=== PATIENT | female | born 1975 | race Caucasian/White ===

== ENCOUNTER → 2023-10-01 12:18 | Outpatient (REF) | payer OTHER, SELFPAY | LOC: HWRAD 12:18 | PROVIDERS: ATTENDING PHYSICIAN Internal Medicine; FAMILY PHYSICIAN Internal Medicine | DX: M54.16 Radiculopathy, lumbar region (principal); M54.32 Sciatica, left side | CPT/HCPCS: 72110 ==

== ENCOUNTER → 2023-10-08 06:28 | Day surgery (SDC) | payer OTHER, SELFPAY ==
[2023-10-08 08:23] LABS: Glucose - Point of Care 110 mg/dl (70-99)
== END ==
LOC: GI 06:28
PROVIDERS: ATTENDING PHYSICIAN Internal Medicine Gastroenterology; FAMILY PHYSICIAN Internal Medicine
DX: Z12.11 Encounter for screening for malignant neoplasm of colon (principal); J02.9 Acute pharyngitis, unspecified; K44.9 Diaphragmatic hernia without obstruction or gangrene; K31.7 Polyp of stomach and duodenum; R12 Heartburn
CPT/HCPCS: 43239; G0121; 88305; 82962

== ENCOUNTER 2023-12-20 16:47 | Emergency (ER) | payer OTHER, SELFPAY ==
[2023-12-20 16:58] VITALS: BP 152/98
[2023-12-20 17:18] LABS: % Basophils 0.5 % (0-2); % Eosinophils 1.4 % (0-6); % Immature Granulocytes 0.3 % (0-0.5); % Lymphocytes 39.4 % (20.5-51.1); % Monocytes 6.1 % (1.7-9.3); % Neutrophils 52.3 % (42.2-75.2); Absolute Basophils 0.1 10^3/uL (0-0.2); Absolute Eosinophils 0.2 10^3/uL (0-0.7); Absolute Lymphocytes 4.4 10^3/uL (1.2-3.4); Absolute Monocytes 0.7 10^3/uL (0.1-0.6); Absolute Neutrophils 5.8 10^3/uL (1.4-6.5); Hematocrit 38.3 % (37.0-47.0); Hemoglobin 12.5 g/dL (12.0-16.0); Mean Corp Hgb Conc. 32.6 g/dL (33.0-37.0); Mean Corpuscular Volume 88.9 fL (81.0-99.0); Mean Platelet Volume 11.8 fL (7.4-10.4); Nucleated Red Blood Cells % 0 %; Platelet Count 234 10^3/uL (130-400); Red Blood Cell Count 4.31 10^6/uL (4.20-5.40); Red Cell Dist. Width 12.5 % (11.5-14.5); White Blood Cell Count 11.1 10^3/uL (4.8-10.8)
[2023-12-20 17:42] LABS: ALT (SGPT) 55 U/L (0-35); AST (SGOT) 34 U/L (14-36); Albumin 4.3 g/dl (3.5-5.0); Alkaline Phosphatase 63 U/L (38-126); Blood Urea Nitrogen 15 mg/dl (7-17); Calcium 10.2 mg/dl (8.4-10.2); Carbon Dioxide 22 mmol/L (22-30); Chloride 105 mmol/L (98-107); Glucose 103 mg/dl (70-99); Sodium 139 mmol/L (135-145); Total Bilirubin 0.4 mg/dl (0.2-1.3); Total Protein 7.1 g/dl (6.3-8.2); eGFR > 60.00
[2023-12-20 19:15] VITALS: BP 135/97
[2023-12-20 19:38] VITALS: BMI 45.8
[2023-12-20 19:52] VITALS: BP 130/81
[2023-12-20] MEDS: BENADRYL 25 MG IV (19:52)
[2023-12-20] MEDS: COMPAZINE 10 MG IV (19:52)
[2023-12-20 20:06] LABS: HCG, Serum Qualitative Screen Negative
[2023-12-20 21:15] VITALS: BP 127/76
[2023-12-20 22:00] VITALS: BP 130/78
--- NOTE | 2023-12-20 22:26 | ED.GENMED ---
History of Present Illness
General
Chief Complaint: Headache
Source: patient and family
Time Seen by Provider: 12/20/23 18:52
Travel History
Have you had any contact with someone who has COVID-19?: No
Do you have any symptoms of coronavirus? Fever > 100 degrees, chills, cough, shortness of breath, sore throat, loss of taste or smell, muscle aches, or headache?: No
History of Present Illness
History of Present Illness:
48-year-old female who presents with complaints of frontal headache. Patient reports that started yesterday and has been constant for 2 days. Patient reports trying Advil without relief. She states that it started yesterday and has gradually
worsened. The patient does admit that she had difficulty with her son yesterday and there is a lot of emotional strife. Patient was seen by her primary care doctor noted to be little hypertensive. Patient my evaluation reports mild photophobia
and frontal throbbing headache. Does have a history of headaches but states that she has never had 1 that persisted like this before. No neck pain. No fever. No rash. No trauma. No vision changes. No motor weakness. No numbness. No tingling
Past History
Past History
ED Past Medical History: GERD, NIDDM and Other (Headaches)
ED Past Surgical History: and Other (Hernia, oral surgery)
Social History
Tobacco: Non-smoker
Phy Exam
Physical Exam
Physical Exam:
CONSTITUTIONAL Patient alert and oriented to person, place and time. Well-appearing. Vital signs reviewed.
HEAD atraumatic, normocephalic.
EYES eyelids normal to inspection, Pupils equally round and reactive to light, Extraocular muscles intact, Conjunctiva normal, Sclera normal.
NECK normal range of motion, Trachea midline, no jugular venous distention.
RESPIRATORY CHEST No respiratory distress noted, Chest expansion equal
ABDOMEN abdomen nontender, Bowel sounds normal. No distention.
BACK normal inspection, no obvious deformities
UPPER EXTREMITY range of motion normal, Motor strength normal, no cyanosis, no edema.
LOWER EXTREMITY range of motion normal, Motor strength normal, no cyanosis, no edema.
NEURO Speech normal, No focal motor deficits, Jerald coma scale 15, Memory normal, Cranial Nerves intact to screening exam. No pronator drift.
SKIN skin warm, dry, and normal in color.
PSYCHIATRIC patient oriented to person place and time, Normal affect.
Course
Orders/Labs/Results
Orders:
Orders
12/20/23 17:09
CMP [Comprehensive Metabolic Panel] Urgent
Complete Blood Count/With Diff Urgent
12/20/23 19:34
Test Result ONCE
12/20/23 19:38
CT Head W/o Iv Contrast Urgent
Comment:
Reason For Exam: headache
Diphenhydramine [Benadryl] 25 mg IV NOW STA
Prochlorperazine [Compazine] 10 mg IV NOW STA
12/20/23 19:44
HCG, Serum Qualitative Screen Urgent
Abnormal Lab Results
12/20/23
17:09
WBC 11.1 H 10^3/uL
(4.8-10.8)
MCHC 32.6 L g/dL
(33.0-37.0)
MPV 11.8 H fL
(7.4-10.4)
Absolute Lymphs (auto) 4.4 H 10^3/uL
(1.2-3.4)
Absolute Monos (auto) 0.7 H 10^3/uL
(0.1-0.6)
Creatinine 0.4 L mg/dL
(0.6-1.0)
Glucose 103 H mg/dl
(70-99)
ALT 55 H U/L
(0-35)
12/20/23 17:09
12/20/23 17:09
Vital Signs
Initial and Last Documented VS:
Initial Vital Signs
Temp Pulse Resp BP Pulse Ox
98.1 F 99 16 152/98 99
12/20/23 16:58 12/20/23 16:58 12/20/23 16:58 12/20/23 16:58 12/20/23 16:58
Last Documented Vital Signs
Temp Pulse Resp BP Pulse Ox
97.9 F 94 18 130/78 93
12/20/23 19:15 12/20/23 22:00 12/20/23 19:52 12/20/23 22:00 12/20/23 22:00
MDM/Problems Addressed
MDM/Problems Addressed:
Headache, suspected migraine
*Radiology
Radiology exam reviewed: radiology read reviewed
*Pulse Oximetry
Patient hypoxic: no
*Critical Care Note
Total Time (30-74mins, 75-104mins- exclusive of procedures): Not Applicable
Data Reviewed
Source: patient and family
Further Testing Considered But Not Given:
Consider CTA but denies thunderclap headache. No clinical suspicion for subarachnoid hemorrhage
Patient Management
Escalation/DeEscalation of care consider admission/obs:
Patient appears quite well. Neuroexam normal. On reevaluation her headache is resolved. Okay for discharge and outpatient follow-up
ED Attending Note
-
Portions of this chart may have been created with voice recognition software.� Occasional wrong word or��sound alike� substitutions may have occurred due to the inherent limitations of voice recognition software.
Discharge Plan
Departure
Patient Disposition: Home (Routine Discharge)
Date of Disposition: 12/20/23
Time of Disposition: 22:26
Patient with high blood pressure during this ER visit?: No
Discharge Problem:
Headache
Instructions: Headache, Adult (DC)
Prescriptions:
No Action
metformin 500 mg Tablet
1,000 mg PO BID
buspirone 30 mg Tablet
30 mg PO BID
norethindrone (contraceptive) 0.35 mg Tablet
0.35 mg PO DAILY
hydroxyzine HCl 10 mg Tablet
5 mg PO BID
Referrals:
Ezra Cespedes I., DO [Family Provider] -
Activity Restrictions/Additional Instructions:
Please see your doctor in the next 2 to 3 days for follow-up and reevaluation. If symptoms become persistent or worse, further testing may be necessary. Return immediately for worsening headache, fever, vision changes, motor weakness, or any other
concerns.
Interventions
Interventions:
*Risk Screen - Suicide Last Done: 12/20/23 19:41
*General Assessment Last Done: 12/20/23 19:40
*Neglect/Abuse Screening Last Done: 12/20/23 19:40
ED- Fall Risk Assessment Last Done: 12/20/23 19:41
*ED COVID-19 Vaccine History Last Done: 12/20/23 16:58
ED- Neurological Assessment Last Done: 12/20/23 19:41
Discharge Date and Time
Print Language: GREEK
== END 2023-12-20 22:45 | disposition home or self-care (01) ==
LOC: EMR 16:47
PROVIDERS: Emergency Medicine; EMERGENCY PHYSICIAN Emergency Medicine; FAMILY PHYSICIAN Internal Medicine
DX: R51.9 Headache, unspecified (principal)
CPT/HCPCS: 99284; 96374; 96375; 70450; 80053; 84703; 85025

== ENCOUNTER 2025-05-21 17:53 | Emergency (ER) | payer BC, SELFPAY ==
[2025-05-21 17:59] VITALS: BP 141/83
[2025-05-21 19:33] VITALS: BMI 38.2
--- NOTE | 2025-05-21 19:35 | EDRN ---
patient endorses worsening right knee pain x3-6 months. patient states she fell and injured the right knee around a year ago and the pain has been worsening, making it difficult for her to ambulate and sleep. CMS present in right lower extremity,
pulses strong.
--- NOTE | 2025-05-21 20:07 | ED.GENMED ---
History of Present Illness
General
Chief Complaint: Extremity Pain (non-traumatic)
Source: patient
Exam Limitations: none
Time Seen by Provider: 05/21/25 19:28
Nursing documentation reviewed up to this point in time: agreed with
History of Present Illness
History of Present Illness:
49-year-old female presenting to the emergency department today with concerns of 6 months of right sided knee pain. Seems to feel unstable denies redness warmth or fevers.
Past History
Past History
ED Past Medical History: GERD, NIDDM and Other (Headaches)
ED Past Surgical History: and Other (Hernia, oral surgery)
Social History
Tobacco: Non-smoker
Review of Systems
Review of Systems
Allergies reviewed?: Yes
All Other Systems: ROS reviewed and negative except as documented in HPI and ROS
Phy Exam
Physical Exam
Physical Exam:
GENERAL: Alert , in no apparent distress
EYE: pupils equal and reactive
NECK: Supple, no significant adenopathy.
ENT: o/p clr, mmm.
CARDIAC: Regular rate and rhythm .
LUNGS: Clear breath sounds bilaterally, no acute respiratory distress, no wheezes/rales/rhonchi
ABDOMEN: Soft, without focal tenderness, no r/g, no cvat
NEUROLOGICAL: Alert and oriented, no focal neuro deficits
SKIN: Warm and dry, skin intact.
MUSCULOSKELETAL: No edema, well perfused. Good range of motion of the right knee no joint laxity no redness or warmth
PSYCH: Normal and appropriate interaction.
Course
Orders/Labs/Results
Orders:
Orders
05/21/25 18:01
Knee, Right 4 or More Views [CR Knee- Right 4 Or More View*] Urgent
Comment:
Reason For Exam: pain
05/21/25 20:06
Knee Immobilizer Right-Treatme ONCE
Vital Signs
Initial and Last Documented VS:
Initial Vital Signs
Temp Pulse Resp BP Pulse Ox
98.2 F 94 16 141/83 100
05/21/25 17:59 05/21/25 17:59 05/21/25 17:59 05/21/25 17:59 05/21/25 17:59
Last Documented Vital Signs
Temp Pulse Resp BP Pulse Ox
98.2 F 94 16 141/83 100
05/21/25 17:59 05/21/25 17:59 05/21/25 17:59 05/21/25 17:59 05/21/25 17:59
MDM/Problems Addressed
MDM/Problems Addressed:
49-year-old female presenting to the emergency department today with concerns of multiple months of right knee pain. No redness or warmth no signs of infection. X-ray without signs of fracture. Patient with likely internal knee derangement
advised for close outpatient follow-up with orthopedics. Return precautions given.
*Pulse Oximetry
SaO2: 100
Oxygen Mode of Delivery: Room air
Patient hypoxic: no (100)
*Critical Care Note
Total Time (30-74mins, 75-104mins- exclusive of procedures): Not Applicable
ED Attending Note
-
Portions of this chart may have been created with voice recognition software.� Occasional wrong word or��sound alike� substitutions may have occurred due to the inherent limitations of voice recognition software.
Discharge Plan
Departure
Patient Disposition: Home (Routine Discharge)
Date of Disposition: 05/21/25
Time of Disposition: 20:08
Patient with high blood pressure during this ER visit?: No
Condition: Good
Covid-19: Not Applicable
Discharge Problem:
Internal derangement of knee
Instructions: Muscle and Bone Pain (DC)
Prescriptions:
No Action
metformin 500 mg Tablet
1,000 mg PO BID
buspirone 30 mg Tablet
30 mg PO BID
norethindrone (contraceptive) 0.35 mg Tablet
0.35 mg PO DAILY
hydroxyzine HCl 10 mg Tablet
5 mg PO BID
Referrals:
Cirilo Vivas MD [Active, Orthopedics] - Follow up in 5-7 days
UNKNOWN - PT DOES,NOT KNOW [Family Provider]
Activity Restrictions/Additional Instructions:
You came to the emergency department today with concerns of knee discomfort. Your x-ray did not show any signs of bony injury. Please follow closely with the orthopedic doctor. Return for any worsening, new or concerning symptoms.
Interventions
Interventions:
*Risk Screen - Suicide Last Done: 05/21/25 17:59
*General Assessment Last Done: 05/21/25 19:34
*Neglect/Abuse Screening Last Done: 05/21/25 17:59
*ED- Fall Risk Assessment Last Done: 05/21/25 19:34
*ED COVID-19 Vaccine History Last Done: 05/21/25 19:34
*ED Influenza Vaccine History Last Done: 05/21/25 19:34
ED-Skin Assessment Last Done: 05/21/25 19:34
ED-Peripheral Vascular Assessment Last Done: 05/21/25 19:34
ED-Musculoskeletal Assessment Last Done: 05/21/25 19:34
Discharge Date and Time
Print Language: KOREAN
[2025-05-21 20:31] VITALS: BP 112/65
== END 2025-05-21 20:36 | disposition home or self-care (01) ==
LOC: EMR 17:53
PROVIDERS: EMERGENCY PHYSICIAN Emergency Medicine
DX: M23.91 Unspecified internal derangement of right knee (principal); E11.9 Type 2 diabetes mellitus without complications; K21.9 Gastro-esophageal reflux disease without esophagitis; Z79.84 Long term (current) use of oral hypoglycemic drugs
CPT/HCPCS: 99283; 73564